=== PATIENT | female | born 1965 | race African-American/Black ===

== ENCOUNTER 2017-08-04 14:51 | Emergency (ER) | payer OTHER, BC ==
[2017-08-04 15:00] VITALS: BP 130/67
[2017-08-04] MEDS ORDERED: ACETAMINOPHEN 325 MG TABLET PO ONE (15:31)
--- NOTE | 2017-08-04 15:37 | ER Document Report ---
ED Hand/Wrist Injury - General Chief Complaint: Wrist Injury Stated Complaint: RIGHT WRIST PAIN Time Seen by Provider: 08/04/17 15:05 Mode of Arrival: Ambulatory Information source: Patient Notes: 52-year-old female presents to ED for complaint of pain and swelling to the right wrist and hand. 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 She states very shortly after that it started to swell and the pain started radiating around the hand and wrist. She states she has been using ice since then but the pain is not getting better with Tylenol. She states she has never injured this hand in the past. TRAVEL OUTSIDE OF THE [place] IN LAST 30 DAYS: No - HPI Injury to: Hand, Wrist Onset: This morning Where: Work Timing: Still present Quality of pain: Sharp, Throbbing Severity: Moderate Pain Level: 4 Context: Swelling - Related Data Allergies/Adverse Reactions: No Known Allergies Allergy (Unverified 08/04/17 14:56) Past Medical History - General Information source: Patient - Social History Smoking Status: Never Smoker Cigarette use (# per day): No Chew tobacco use (# tins/day): No Smoking Education Provided: No Frequency of alcohol use: Social Drug Abuse: None Occupation: Post office Lives with: Alone Family History: CAD, CVA, DM, Hyperlipidemia, Hypertension Patient has suicidal ideation: No Patient has homicidal ideation: No - Past Medical History Cardiac Medical History: Reports: None Pulmonary Medical History: Reports: Hx Pneumonia EENT Medical History: Reports: None Neurological Medical History: Reports: None Endocrine Medical History: Reports: None Renal/ Medical History: Reports: None Malignancy Medical History: Reports: None GI Medical History: Reports: None Musculoskeltal Medical History: Reports Hx Musculoskeletal Trauma - Strain to her back and her knee no broken bones Skin Medical History: Reports None Psychiatric Medical History: Reports: None Traumatic Medical History: Reports: None Infectious Medical History: Reports: None Surgical Hx: Negative Past Surgical History: Reports: None Review of Systems - Review of Systems Constitutional: No symptoms reported EENT: No symptoms reported Cardiovascular: No symptoms reported Respiratory: No symptoms reported Gastrointestinal: No symptoms reported Genitourinary: No symptoms reported Female Genitourinary: No symptoms reported Musculoskeletal: Other - Pain and swelling to the right wrist and hand Skin: No symptoms reported Hematologic/Lymphatic: No symptoms reported Neurological/Psychological: No symptoms reported -: Yes All other systems reviewed and negative Physical Exam - Vital signs Vitals: Temp Pulse Resp BP Pulse Ox 97.9 F 77 16 130/67 H 100 08/04/17 14:56 08/04/17 14:56 08/04/17 14:56 08/04/17 14:56 08/04/17 14:56 Interpretation: Normal - General General appearance: Appears well, Alert - HEENT Head: Normocephalic, Atraumatic Eyes: Normal Pupils: PERRL - Respiratory Respiratory status: No respiratory distress Chest status: Nontender Breath sounds: Normal Chest palpation: Normal - Cardiovascular Rhythm: Regular Heart sounds: Normal auscultation Murmur: No - Abdominal Inspection: Normal Distension: No distension Bowel sounds: Normal Tenderness: Nontender Organomegaly: No organomegaly - Back Back: Normal, Nontender - Extremities General upper extremity: Normal temperature General lower extremity: Normal inspection, Nontender, Normal color, Normal ROM , Normal temperature, Normal weight bearing. No: Edgardo's sign Wrist: Tender, Limited ROM - To pain when encouraged she can move in all planes , Other - Mild swelling Hand: Tender, No evidence of human bite, No evidence of FB - Neurological Neuro grossly intact: Yes Cognition: Normal Orientation: AAOx4 [place] Coma Scale Eye Opening: Spontaneous [place] Coma Scale Verbal: Oriented [place] Coma Scale Motor: Obeys Commands Denise Coma Scale Total: 15 Speech: Normal Motor strength normal: LUE, RUE, LLE, RLE Sensory: Normal - Psychological Associated symptoms: Normal affect, Normal mood - Skin Skin Temperature: Warm Skin Moisture: Dry Skin Color: Normal Course - Re-evaluation Re-evalutation: 08/04/17 17:00 X-rays discussed with patient and written report given the patient to follow-up with orthopedics. A cock-up splint was applied to the right wrist for her discomfort. She was treated with Tylenol for her pain and given ice pack and instructed on use of ice and elevation for the discomfort. There is no fractures noted on the x-ray. There is slight swelling to the radial aspect of the wrist. Will discharge home to follow-up with orthopedics. - Vital Signs Vital signs: Temp Pulse Resp BP Pulse Ox 97.9 F 77 16 130/67 H 100 08/04/17 14:56 08/04/17 14:56 08/04/17 14:56 08/04/17 14:56 08/04/17 14:56 - Diagnostic Test Radiology reviewed: Image reviewed, Reports reviewed Procedures - Immobilization Right Wrist Time completed: 16:15 Pre-Proc Neuro Vasc Exam: Normal Immobilizer type: Cock-up Performed by: PCT Post-Proc Neuro Vasc Exam: Normal Alignment checked and good: Yes Discharge - Discharge Clinical Impression: Right wrist sprain Qualifiers: Encounter type: initial encounter Qualified Code(s): S63.501A - Unspecified sprain of right wrist, initial encounter Condition: Stable Disposition: HOME, SELF-CARE Additional Instructions: SPRAIN: Your injury is a sprain. A sprain results from stretching or tearing of the ligaments, usually from a twisting injury. The ligaments will require time and protection in order to heal properly. Many sprains are quite disabling and should be taken seriously. The usual initial treatment of sprains is cold packs, elevation, and rest of the injured area. Your physician has assessed the seriousness of your ligament injury, and has outlined a treatment plan. Understand that this treatment may change, depending on how you progress. If a re-examination was recommended, it is important that you follow up as instructed. Call the doctor any time if there is severe pain, numbness, or loss of function in the injured area. SPLINT PRECAUTIONS: A splint has been placed. This will protect the area while healing begins. Your problem does NOT normally require a cast. It MUST, however, be held still! Keep the splint on ALL THE TIME until instructed to remove it by the doctor. As you begin to use the area, be careful. You shouldn't do anything which causes discomfort -- you may disturb the injury even with the splint in place. After the initial period of rest and elevation, if splint does not prevent pain when you move, come back. You may require placement of a different splint , or a cast. If there is unexpected severe pain, or numbness, discoloration, or swelling beyond the splint, you should return at once. If you feel that the splint has broken or become loose, come back. ICE & ELEVATION: Apply ice packs frequently against the painful area. Many different schedules are recommended, such as "20 minutes on, 20 minutes off" or "one hour ice, two hours rest." If you need to work, you may need to go longer between ice treatments. You should plan to have the area ice packed AT LEAST one- fourth of the time. The ice should be applied over the wrap, tape, or splint, or over a layer of cloth -- not directly against the skin. Some ice bags have a built-in cloth and can be put directly on the skin. Your injured part should be elevated as much as possible over the next 48 hours. Try to keep the injury above the level of the heart. Avoid use of the injured area. Elevation and rest will decrease the swelling. USE OF [id number] IBUPROFEN: Ibuprofen (Advil, Nuprin, Medipren, Motrin IB) is a medication for fever and pain control. In addition, it has anti- inflammatory effects which may be beneficial, especially in the treatment of injuries. It's best to take ibuprofen with food. Persons with ulcer disease or allergy to aspirin should notify their physician of this before taking ibuprofen. Ibuprofen can be given every four to six hours, for a total of four doses daily. Age Pain or fever dose Antiinflammatory dose 6-8 yr 200 mg (1 tab) 200 mg (1 tab) 9-11 yr 200 mg (1 tab) 200-400 mg (1-2 tab) 11-14 yr 200-400 mg (1-2 tab) 400 mg (2 tab) 15-adult 400 mg (2 tab) 600 mg (3 tab) FOLLOW-UP CARE: If you have been referred to a physician for follow-up care, call the physician s office for an appointment as you were instructed or within the next two days. If you experience worsening or a significant change in your symptoms, notify the physician immediately or return to the Emergency Department at any time for re-evaluation. Prescriptions: Naproxen 500 mg PO BIDP PRN #14 tablet PRN Reason: Forms: Elevated Blood Pressure, Return to Work Referrals: MARVEL POON DO [ACTIVE STAFF] - Follow up as needed
--- NOTE | 2017-08-04 15:44 | RADIOLOGY REPORT (SQ) ---
EXAM DESCRIPTION: WRIST RIGHT 3 VIEWS COMPLETED DATE/TIME: 08/04/2017 3:28 pm REASON FOR STUDY: pain and injury COMPARISON: None. NUMBER OF VIEWS: Three views. TECHNIQUE: AP, lateral, and oblique radiographic images acquired of the right wrist. LIMITATIONS: None. FINDINGS: MINERALIZATION: Normal. BONES: No acute fracture or dislocation. No worrisome bone lesions. Normal alignment. SOFT TISSUES: No soft tissue swelling. No foreign body. OTHER: No other significant finding. IMPRESSION: NEGATIVE STUDY OF THE RIGHT WRIST. NO RADIOGRAPHIC EVIDENCE OF ACUTE INJURY. TECHNICAL DOCUMENTATION: JOB ID: [id number] [employer]- All Rights Reserved
--- NOTE | 2017-08-04 15:57 | RADIOLOGY REPORT (SQ) ---
EXAM DESCRIPTION: HAND RIGHT 3 VIEWS COMPLETED DATE/TIME: 08/04/2017 3:28 pm REASON FOR STUDY: pain and injury COMPARISON: None. EXAM PARAMETERS: NUMBER OF VIEWS: Three views. TECHNIQUE: AP, lateral and oblique radiographic images acquired of the right hand. LIMITATIONS: None. FINDINGS: MINERALIZATION: Normal. BONES: No acute fracture or dislocation. No worrisome bone lesions. JOINTS: No effusions. SOFT TISSUES: No soft tissue swelling. No foreign body. OTHER: No other significant finding. IMPRESSION: NEGATIVE STUDY OF THE RIGHT HAND. NO RADIOGRAPHIC EVIDENCE OF ACUTE INJURY. TECHNICAL DOCUMENTATION: JOB ID: [id number] [employer]- All Rights Reserved
== END 2017-08-04 16:15 | disposition home or self-care (01) ==
LOC: ER 14:51
DX: S63.501A Unspecified sprain of right wrist, initial encounter (principal); X50.0XXA Overexertion from strenuous movement or load, initial encounter; Y93.89 Activity, other specified; Y92.242 Post office as the place of occurrence of the external cause; Y99.0 Civilian activity done for income or pay; M25.531 Pain in right wrist; M79.642 Pain in left hand
CPT/HCPCS: 99283; 73130; 73110; L3908

== ENCOUNTER 2018-04-15 03:17 | Emergency (ER) | payer BC, OTHER ==
[2018-04-15 03:44] LABS: ABSOLUTE EOSINOPHILS # (AUTO) 0.1 10^3/uL (0.0-0.6); ABSOLUTE LYMPHOCYTES (AUTO) 2.6 10^3/uL (0.5-4.7); ABSOLUTE NEUT (AUTO) 2.2 10^3/uL (1.7-8.2); BASOPHILS % (AUTO) 0.4 % (0-2); EOSINOPHILS % (AUTO) 1.4 % (0-6); HEMATOCRIT 36.4 % (36.0-47.0); HEMOGLOBIN 12.2 g/dL (12.0-15.5); LYMPHOCYTES % (AUTO) 43.9 % (13-45); MEAN CORPUSCULAR HEMOGLOBIN 28.9 pg (27.0-33.4); MEAN CORPUSCULAR HGB CONC 33.4 g/dL (32.0-36.0); MEAN CORPUSCULAR VOLUME 87 fl (80-97); PLATELET COUNT 179 10^3/uL (150-450); RED BLOOD COUNT 4.21 10^6/uL (3.72-5.28); RED CELL DISTRIBUTION WIDTH 13.2 % (11.5-14.0); SEGMENTED NEUTROPHILS % (AUTO) 37.3 % (42-78); TOTAL CELLS COUNTED % (AUTO) 100 %; WHITE BLOOD COUNT 5.9 10^3/uL (4.0-10.5)
[2018-04-15 03:51] LABS: ALANINE AMINOTRANSFERASE 26 U/L (9-52); ALBUMIN 4.6 g/dL (3.5-5.0); ALKALINE PHOSPHATASE 84 U/L (38-126); ANION GAP 14 (5-19); ASPARTATE AMINO TRANSFERASE 22 U/L (14-36); BILIRUBIN,DIRECT 0.2 mg/dL (0.0-0.4); BILIRUBIN,TOTAL 1.1 mg/dL (0.2-1.3); BLOOD UREA NITROGEN 14 mg/dL (7-20); CARBON DIOXIDE 24 mmol/L (22-30); CHLORIDE 103 mmol/L (98-107); CREATINE KINASE 79 U/L (30-135); GLUCOSE 123 mg/dL (75-110); POTASSIUM 4.6 mmol/L (3.6-5.0); SODIUM 140.5 mmol/L (137-145)
[2018-04-15 04:03] LABS: CREATINE KINASE MB 0.31 ng/mL (<4.55)
[2018-04-15 04:04] LABS: TROPONIN I < 0.012 ng/mL
--- NOTE | 2018-04-15 05:21 | RADIOLOGY REPORT (SQ) ---
EXAM DESCRIPTION: XR CHEST 1 VIEW COMPLETED DATE/TME: 04/15/2018 03:25 CLINICAL HISTORY: chest pain COMPARISON: None. FINDINGS: Single frontal view of the chest. The cardiomediastinal silhouette has normal size and contour. No consolidation, pneumothorax, or pleural effusion. No displaced rib fractures identified. Upper abdominal soft tissues are unremarkable. Leads overlie the chest. IMPRESSION: 1. No acute pulmonary process identified.
--- NOTE | 2018-04-15 06:10 | ER Document Report ---
ED General - General Chief Complaint: Chest Pain Stated Complaint: CHEST PAIN Time Seen by Provider: 04/15/18 06:10 TRAVEL OUTSIDE OF THE [place] IN LAST 30 DAYS: No - HPI Notes: 52-year-old female presents with 3-day history of shortness of breath, headache , nasal congestion. Patient's headache is 8/10 throbbing in nature without radiation. Nothing has made the pain better or worse. Nasal congestion is getting worse and worse since Friday. Patient had difficulty at work yesterday breathing. Also endorses a sharp left-sided chest pain without radiation independent of exertion. Patient states this is improved but she is concerned she might have a pneumonia, patient does have history of pneumonia. Denies fever chills or constitutional symptoms. - Related Data Allergies/Adverse Reactions: No Known Allergies Allergy (Unverified 08/04/17 14:56) Past Medical History - Social History Smoking Status: Never Smoker Chew tobacco use (# tins/day): No Frequency of alcohol use: Occasional Drug Abuse: None Family History: CAD, CVA, DM, Hyperlipidemia, Hypertension Patient has suicidal ideation: No Patient has homicidal ideation: No Pulmonary Medical History: Reports: Hx Pneumonia Renal/ Medical History: Denies: Hx Peritoneal Dialysis Musculoskeltal Medical History: Reports Hx Musculoskeletal Trauma - Strain to her back and her knee no broken bones Review of Systems - Review of Systems Notes: REVIEW OF SYSTEMS: CONSTITUTIONAL: -fevers, -chills EENT: -eye pain, -difficulty swallowing, -nasal congestion CARDIOVASCULAR: chest pain, -syncope. RESPIRATORY: -cough, + SOB GASTROINTESTINAL: -abdominal pain, -nausea, -vomiting, -diarrhea GENITOURINARY: -dysuria, -hematuria MUSCULOSKELETAL: -back pain, -neck pain SKIN: -rash or skin lesions. HEMATOLOGIC: -easy bruising or bleeding. LYMPHATIC: -swollen, enlarged glands. NEUROLOGICAL: -altered mental status or loss of consciousness, -headache, - neurologic symptoms PSYCHIATRIC: -anxiety, -depression. ALL OTHER SYSTEMS REVIEWED AND NEGATIVE. Physical Exam - Vital signs Vitals: Temp Pulse Resp BP Pulse Ox 98.4 F 73 17 113/69 100 04/15/18 03:40 04/15/18 03:40 04/15/18 03:40 04/15/18 03:40 04/15/18 03:40 - Notes Notes: PHYSICAL EXAMINATION: GENERAL: Well-appearing, well-nourished and in no acute distress. HEAD: Atraumatic, normocephalic. EYES: Pupils equal round and reactive to light, extraocular movements intact, sclera anicteric, conjunctiva are normal. ENT: nares patent, oropharynx clear without exudates. Moist mucous membranes. NECK: Normal range of motion, supple without lymphadenopathy LUNGS: Breath sounds clear to auscultation bilaterally and equal. No wheezes rales or rhonchi. HEART: Regular rate and rhythm without murmurs ABDOMEN: Soft, nontender, normoactive bowel sounds. No guarding, no rebound. No masses appreciated. EXTREMITIES: Normal range of motion, no pitting or edema. No cyanosis. NEUROLOGICAL: Cranial nerves grossly intact. Normal speech, normal gait. Normal sensory and motor exams. PSYCH: Normal mood, normal affect. SKIN: Warm, Dry, normal turgor, no rashes or lesions noted. Course - Re-evaluation Re-evalutation: 04/15/18 06:43 Pleasant female no acute distress presents with headache nasal congestion some sharp chest pain shortness of breath. Patient has history of pneumonia in the past. Patient's EKG unremarkable. Extensive lab workup unremarkable. D-dimer is negative by age adjustment. 04/15/18 06:44 04/15/18 06:46 Well-appearing female no acute distress. Oxygen saturations greater than 97% on room air. Will be given prescription for doxycycline and discharged home improved Scheduled to see her PCP in 2 days. - Vital Signs Vital signs: Temp Pulse Resp BP Pulse Ox 98.4 F 73 18 113/69 100 04/15/18 03:40 04/15/18 03:40 04/15/18 05:00 04/15/18 03:40 04/15/18 03:40 - Laboratory Result Diagrams: 04/15/18 03:00 04/15/18 03:00 Laboratory results interpreted by me: 04/15/18 04/15/18 04/15/18 03:00 03:00 03:00 Seg Neutrophils % 37.3 L Monocytes % 17.0 H D-Dimer 0.52 H Glucose 123 H - EKG Interpretation by Me Additional EKG results interpreted by me: 04/15/18 06:18 Normal sinus rhythm, normal intervals, no ST elevations or depressions 04/15/18 06:44 71 bpm Discharge - Discharge Clinical Impression: Pneumonia Qualifiers: Pneumonia type: due to unspecified organism Laterality: unspecified laterality Lung location: unspecified part of lung Qualified Code(s): J18.9 - Pneumonia, unspecified organism Condition: Stable Instructions: Pneumonia ([facility]) Additional Instructions: See your PCP in 2 days Prescriptions: Doxycycline Hyclate 100 mg PO BID #14 capsule Referrals: LOCALMD,NO [Primary Care Provider] - Follow up as needed
[2018-04-15 07:21] VITALS: BP 108/77
--- NOTE | 2018-04-15 21:48 | EKG REPORT ---
SEVERITY:- NORMAL ECG - SINUS RHYTHM : Confirmed by: Luna Issa MD 15-Apr-2018 21:46:31
== END 2018-04-15 07:28 | disposition home or self-care (01) ==
LOC: ER 03:17
DX: J18.9 Pneumonia, unspecified organism (principal); R51 Headache; R09.81 Nasal congestion; R07.9 Chest pain, unspecified
CPT/HCPCS: 36415; 71045; 80053; 82550; 82553; 84484; 85025; 85379; 93005; 93010; 99285